=== PATIENT | male | born 1950 | race Caucasian/White ===

== ENCOUNTER 2017-12-11 01:35 | Emergency (ER) | payer OTHER ==
[~2017-12-11] VITALS: Ht 162.6 cm; Wt 72.6 kg
[~2017-12-11 01:35] MED LIST: CIPRO500 MG PO; FLAGYL500MG PO; ULTRACET PO; [UNRECOGNIZED DRUG - OTHER] PO
[2017-12-11] MEDS ORDERED: SYNTHROID50 MCG PO (01:48)
[2017-12-11] MEDS ORDERED: VALSARTAN80 MG PO (02:03)
[2017-12-11] MEDS ORDERED: NIFEDIPINE ER30 M1 PO (05:00)
== END 2017-12-11 05:08 | disposition home or self-care (01) ==
LOC: ER 01:35
DX: I10 Essential (primary) hypertension (principal)

== ENCOUNTER 2018-03-25 11:07 | Emergency (ER) | payer OTHER ==
[~2018-03-25] VITALS: Ht 162.6 cm; Wt 72.6 kg
[~2018-03-25 11:07] MED LIST changes: +NIFEDIPINE ER30 M1 PO; +SYNTHROID50 MCG PO; +VALSARTAN80 MG PO
[2018-03-25] MEDS ORDERED: NIFE60TA3 (11:51)
== END 2018-03-25 14:51 | disposition home or self-care (01) ==
LOC: ER 11:07
DX: M54.2 Cervicalgia (principal); M62.838 Other muscle spasm

== ENCOUNTER 2018-05-18 07:32 | Outpatient (CLI) | payer OTHER ==
[~2018-05-18 07:32] MED LIST changes: +NIFE60TA3
== END 2018-05-18 07:40 | disposition home or self-care (01) ==
LOC: LAB 07:32
DX: N40.1 Benign prostatic hyperplasia with lower urinary tract symptoms (principal); N39.0 Urinary tract infection, site not specified; D51.0 Vitamin B12 deficiency anemia due to intrinsic factor deficiency; E78.89 Other lipoprotein metabolism disorders; E11.9 Type 2 diabetes mellitus without complications; I10 Essential (primary) hypertension; I25.10 Atherosclerotic heart disease of native coronary artery without angina pectoris; I11.9 Hypertensive heart disease without heart failure; E78.2 Mixed hyperlipidemia; E03.8 Other specified hypothyroidism; M1A.00X0 Idiopathic chronic gout, unspecified site, without tophus (tophi)

== ENCOUNTER → 2018-06-24 | Day surgery (SDC) | payer OTHER | END | disposition home or self-care (01) | LOC: ADM 06-17 13:00 → AMB-ENDOS 06:10 | DX: K57.30 Diverticulosis of large intestine without perforation or abscess without bleeding (principal) ==

== ENCOUNTER 2018-06-30 08:18 | Outpatient (CLI) | payer OTHER | END 2018-06-30 08:31 | disposition home or self-care (01) | LOC: SONOGRAMA 08:18 | DX: K76.0 Fatty (change of) liver, not elsewhere classified (principal) ==

== ENCOUNTER 2018-08-04 06:57 | Outpatient (CLI) | payer OTHER | END 2018-08-04 07:03 | disposition home or self-care (01) | LOC: LAB 06:57 | DX: N39.0 Urinary tract infection, site not specified (principal); D68.8 Other specified coagulation defects ==

== ENCOUNTER 2018-08-31 08:15 | Outpatient (CLI) | payer OTHER | END 2018-08-31 08:19 | disposition home or self-care (01) | LOC: TOM 08:15 | DX: C61 Malignant neoplasm of prostate (principal) ==

== ENCOUNTER 2018-09-01 07:48 | Outpatient (CLI) | payer OTHER | END 2018-09-01 07:58 | disposition home or self-care (01) | LOC: NUCLEAR 07:48 | DX: C61 Malignant neoplasm of prostate (principal) | CPT/HCPCS: 78306; A9503 ==

== ENCOUNTER 2018-12-27 08:31 | Outpatient (CLI) | payer OTHER | END 2018-12-27 12:56 | disposition home or self-care (01) | LOC: LAB 08:31 | DX: N39.0 Urinary tract infection, site not specified (principal); C61 Malignant neoplasm of prostate; D50.8 Other iron deficiency anemias; E03.8 Other specified hypothyroidism; E78.2 Mixed hyperlipidemia; I11.9 Hypertensive heart disease without heart failure; E56.8 Deficiency of other vitamins; Z12.11 Encounter for screening for malignant neoplasm of colon; E55.9 Vitamin D deficiency, unspecified; N19 Unspecified kidney failure; E11.9 Type 2 diabetes mellitus without complications; R80.8 Other proteinuria; C18.0 Malignant neoplasm of cecum; K92.1 Melena; D50.9 Iron deficiency anemia, unspecified ==

== ENCOUNTER 2019-02-13 12:44 | Emergency (ER) | payer OTHER ==
[~2019-02-13] VITALS: Ht 162.6 cm; Wt 72.6 kg
== END 2019-02-13 16:20 | disposition home or self-care (01) ==
LOC: ER 12:44
DX: M25.562 Pain in left knee (principal)

== ENCOUNTER 2019-02-23 10:40 | Emergency (ER) | payer OTHER ==
[~2019-02-23] VITALS: Ht 162.6 cm; Wt 72.6 kg
== END 2019-02-23 15:45 | disposition home or self-care (01) ==
LOC: ER 10:40
DX: M54.2 Cervicalgia (principal); R51 Headache

== ENCOUNTER 2019-02-28 08:22 | Outpatient (CLI) | payer OTHER | END 2019-02-28 09:04 | disposition home or self-care (01) | LOC: LAB 08:22 | DX: N39.0 Urinary tract infection, site not specified (principal) ==

== ENCOUNTER 2019-03-11 08:49 | Outpatient (CLI) | payer OTHER | END 2019-03-11 08:53 | disposition home or self-care (01) | LOC: LAB 08:49 | DX: C61 Malignant neoplasm of prostate (principal) ==

== ENCOUNTER 2019-03-22 09:00 | Outpatient (CLI) | payer OTHER | END 2019-03-22 09:02 | disposition home or self-care (01) | LOC: RAD 09:00 | DX: M17.0 Bilateral primary osteoarthritis of knee (principal) ==

== ENCOUNTER 2019-04-13 09:08 | Emergency (ER) | payer OTHER ==
[~2019-04-13] VITALS: Ht 162.6 cm; Wt 73.5 kg
== END 2019-04-13 21:15 | disposition home or self-care (01) ==
LOC: ER
DX: I82.492 Acute embolism and thrombosis of other specified deep vein of left lower extremity (principal); I87.2 Venous insufficiency (chronic) (peripheral); M79.662 Pain in left lower leg

== ENCOUNTER 2019-04-14 09:20 | Outpatient (CLI) | payer OTHER | END 2019-04-14 14:29 | disposition home or self-care (01) | LOC: SONOGRAMA 09:20 | DX: N64.4 Mastodynia (principal) ==

== ENCOUNTER 2019-04-28 10:04 | Emergency (ER) | payer OTHER ==
[~2019-04-28] VITALS: Ht 162.6 cm; Wt 72.6 kg
[2019-04-28] MEDS ORDERED: XARELTO20 MG (10:16)
[2019-04-28] MEDS ORDERED: ULTRACET PO (12:55)
== END 2019-04-28 13:02 | disposition home or self-care (01) ==
LOC: ER 10:04
DX: I87.2 Venous insufficiency (chronic) (peripheral) (principal); M79.605 Pain in left leg

== ENCOUNTER 2019-05-03 20:33 | Emergency (ER) | payer OTHER ==
[~2019-05-03] VITALS: Ht 162.6 cm; Wt 72.6 kg
[~2019-05-03 20:33] MED LIST changes: +XARELTO20 MG
== END 2019-05-04 03:04 | disposition home or self-care (01) ==
LOC: ER 20:33 → CPU-OBS 20:34 → ER 20:34
DX: R07.89 Other chest pain (principal)

== ENCOUNTER 2019-07-13 09:51 | Outpatient (CLI) | payer OTHER | END 2019-07-13 10:00 | disposition home or self-care (01) | LOC: NUCLEAR 09:51 | DX: I80.222 Phlebitis and thrombophlebitis of left popliteal vein (principal) ==

== ENCOUNTER → 2019-07-15 08:56 | Outpatient (CLI) | payer OTHER | END | disposition home or self-care (01) | LOC: LAB 08:56 | DX: C61 Malignant neoplasm of prostate (principal); I10 Essential (primary) hypertension; E03.8 Other specified hypothyroidism; D50.8 Other iron deficiency anemias; D51.8 Other vitamin B12 deficiency anemias; R97.0 Elevated carcinoembryonic antigen [CEA]; R97.8 Other abnormal tumor markers ==

== ENCOUNTER 2019-10-21 08:57 | Outpatient (CLI) | payer OTHER | END 2019-10-21 09:22 | disposition home or self-care (01) | LOC: NUCLEAR 08:57 | DX: I80.222 Phlebitis and thrombophlebitis of left popliteal vein (principal); E03.8 Other specified hypothyroidism; I10 Essential (primary) hypertension; D51.1 Vitamin B12 deficiency anemia due to selective vitamin B12 malabsorption with proteinuria; D51.3 Other dietary vitamin B12 deficiency anemia; C61 Malignant neoplasm of prostate ==

== ENCOUNTER 2019-10-21 10:12 | Outpatient (CLI) | payer OTHER | END 2019-10-21 10:18 | disposition home or self-care (01) | LOC: LAB 10:12 | DX: D50.8 Other iron deficiency anemias (principal); I10 Essential (primary) hypertension; C61 Malignant neoplasm of prostate; E03.8 Other specified hypothyroidism; I80.222 Phlebitis and thrombophlebitis of left popliteal vein; D51.1 Vitamin B12 deficiency anemia due to selective vitamin B12 malabsorption with proteinuria; R97.0 Elevated carcinoembryonic antigen [CEA]; E06.3 Autoimmune thyroiditis; D51.0 Vitamin B12 deficiency anemia due to intrinsic factor deficiency ==

== ENCOUNTER 2020-01-30 09:47 | Outpatient (CLI) | payer OTHER | END 2020-01-30 10:53 | disposition home or self-care (01) | LOC: NUCLEAR 09:47 | PROVIDERS: ATTEND Internal Medicine Hematology & Oncology | DX: C61 Malignant neoplasm of prostate (principal); I80.222 Phlebitis and thrombophlebitis of left popliteal vein; D51.1 Vitamin B12 deficiency anemia due to selective vitamin B12 malabsorption with proteinuria; D51.3 Other dietary vitamin B12 deficiency anemia; E03.8 Other specified hypothyroidism; I10 Essential (primary) hypertension; M10.00 Idiopathic gout, unspecified site ==

== ENCOUNTER 2020-02-16 09:06 | Outpatient (CLI) | payer OTHER | END 2020-02-16 09:18 | disposition home or self-care (01) | LOC: LAB 09:06 | PROVIDERS: ATTEND Internal Medicine Hematology & Oncology | DX: C61 Malignant neoplasm of prostate (principal); I80.222 Phlebitis and thrombophlebitis of left popliteal vein; D51.1 Vitamin B12 deficiency anemia due to selective vitamin B12 malabsorption with proteinuria; D51.3 Other dietary vitamin B12 deficiency anemia; E03.8 Other specified hypothyroidism; I10 Essential (primary) hypertension; M10.00 Idiopathic gout, unspecified site; R97.0 Elevated carcinoembryonic antigen [CEA]; R97.20 Elevated prostate specific antigen [PSA] ==

== ENCOUNTER 2020-09-25 08:31 | Outpatient (CLI) | payer OTHER | END 2020-09-25 08:36 | disposition home or self-care (01) | LOC: NUCLEAR 08:31 | PROVIDERS: ATTEND Internal Medicine | DX: C61 Malignant neoplasm of prostate (principal) | CPT/HCPCS: 78815; A9552 ==

== ENCOUNTER 2021-01-24 09:50 | Day surgery (SDC) | payer OTHER | END 2021-01-24 13:30 | disposition home or self-care (01) | LOC: AMB-ENDOS 09:50 → EDBD 09:50 → AMB-ENDOS 13:30 | PROVIDERS: ATTEND Surgery | DX: K62.89 Other specified diseases of anus and rectum (principal); K62.7 Radiation proctitis; Z20.822 Contact with and (suspected) exposure to COVID-19; K64.4 Residual hemorrhoidal skin tags ==

== ENCOUNTER 2021-06-03 04:44 | Inpatient (IN) | payer OTHER ==
[~2021-06-03] VITALS: Ht 162.6 cm
[2021-06-03] MEDS ORDERED: NORVASC5 MG (05:09)
--- NOTE | 2021-06-03 05:13 | NUR ---
SE RECIBE PTE ALERTA Y ORIENTADO POR CHELA. PTE REFIERE PRESENTAR DOLOR EN TODO EL ABDOMEN Y UN EPISODIO DE VOMITO. PTE INDICA QUE LOS SINTOMAS COMENZARON GUADALUPE A LAS 7:00PM APROXIMADAMENTE.
--- NOTE | 2021-06-03 06:02 | NUR ---
PACIENTE ALERTA Y ORIENTADO X3. MIS. PEDROZA ORIENTA A PACIENTE SOBRE TX Y PROCEDIMIENTO A REALIZAR Y REFIRIO ENTENDER. REALIZA MUESTRAS DE LABORATORIO BAJO MEDIDAS ASEPTICAS Y CANALIZACION PATENTE Y SHELLY DE EDEMA Y ERITEMA. ADMINISTRA MEDICAMENTOS ORDENADOS POR MD. PENDIENTE CT ABDOMEN Y PELVICO CON CONTRASTE PO. SE ORIENTO A PACIENTE SOBRE JOSÉ MIGUEL TOMARSE EL CONTRASTE PO Y REFIRIO ENTENDER. SE MANTIENE BAJO OBSERVACION POR CAMBIOS SIGNIFICATIVOS EN THUAN CON BARANDAS ELEVADAS.
[2021-06-08] MEDS ORDERED: COLCHICINE0.6 MG PO (11:31)
[2021-06-08] MEDS ORDERED: NAPR500T14 PO (11:32)
[2021-06-08] MEDS ORDERED: PROTONIX40 MG PO (11:33)
== END 2021-06-08 13:19 | disposition home or self-care (01) | DRG 337 ==
LOC: ER 04:44 → SURG 15:46 → SURH 06-08 07:45
PROVIDERS: ADMIT Surgery; ATTEND Surgery
PROC: BW2110Z Computerized Tomography (CT Scan) of Abdomen and Pelvis using Low Osmolar Contrast, Unenhanced and Enhanced (ICD-10-PCS; 2021-06-03)
PROC: 0DN84ZZ Release Small Intestine, Percutaneous Endoscopic Approach (ICD-10-PCS; 2021-06-04)
PROC: 3E0F7SF Introduction of Other Gas into Respiratory Tract, Via Natural or Artificial Opening (ICD-10-PCS; 2021-06-04)
PROC: 0DTJ4ZZ Resection of Appendix, Percutaneous Endoscopic Approach (ICD-10-PCS; principal; 2021-06-04 07:00)
PROC: B54CZZZ Ultrasonography of Left Lower Extremity Veins (ICD-10-PCS; 2021-06-06)
DX: K35.890 Other acute appendicitis without perforation or gangrene (principal); K66.0 Peritoneal adhesions (postprocedural) (postinfection); M10.9 Gout, unspecified; N36.8 Other specified disorders of urethra; I10 Essential (primary) hypertension; E03.8 Other specified hypothyroidism; I73.89 Other specified peripheral vascular diseases; Z20.822 Contact with and (suspected) exposure to COVID-19; Z86.718 Personal history of other venous thrombosis and embolism

== ENCOUNTER 2022-02-06 11:17 | Inpatient (IN) | payer OTHER ==
[~2022-02-06] VITALS: Ht 152.4 cm; Wt 75.3 kg
[~2022-02-06 11:17] MED LIST changes: +COLCHICINE0.6 MG PO; +NAPR500T14 PO; +NORVASC5 MG; +PROTONIX40 MG PO
== END 2022-02-08 15:44 | disposition home or self-care (01) | DRG 390 ==
LOC: ER 11:17 → SURH 22:47
PROVIDERS: ADMIT Surgery; ATTEND Surgery
PROC: BW21YZZ Computerized Tomography (CT Scan) of Abdomen and Pelvis using Other Contrast (ICD-10-PCS; principal; 2022-02-06)
DX: K56.690 Other partial intestinal obstruction (principal); K59.09 Other constipation; R10.9 Unspecified abdominal pain; Z85.46 Personal history of malignant neoplasm of prostate; Z20.822 Contact with and (suspected) exposure to COVID-19

== ENCOUNTER 2022-02-23 10:28 | Emergency (ER) | payer OTHER ==
[~2022-02-23] VITALS: Ht 152.4 cm; Wt 74.4 kg
[2022-02-23] MEDS ORDERED: COMPLETE OMEGA1 EACH PO (10:38)
== END 2022-02-23 12:39 | disposition home or self-care (01) ==
LOC: ER 10:28
DX: R31.9 Hematuria, unspecified (principal); I10 Essential (primary) hypertension

== ENCOUNTER 2022-03-18 10:41 | Outpatient (CLI) | payer OTHER ==
[~2022-03-18 10:41] MED LIST changes: +COMPLETE OMEGA1 EACH PO
== END 2022-03-18 10:44 | disposition home or self-care (01) ==
LOC: NUCLEAR 10:41
PROVIDERS: ATTEND Internal Medicine Geriatric Medicine
DX: I87.2 Venous insufficiency (chronic) (peripheral) (principal); I82.509 Chronic embolism and thrombosis of unspecified deep veins of unspecified lower extremity

== ENCOUNTER 2022-07-04 11:30 | Outpatient (CLI) | payer OTHER | END 2022-07-04 11:31 | disposition home or self-care (01) | LOC: LAB 11:30 | PROVIDERS: ATTEND Radiology Diagnostic Radiology | DX: D12.1 Benign neoplasm of appendix (principal) ==

== ENCOUNTER 2022-11-05 11:43 | Outpatient (CLI) | payer OTHER | END 2022-11-05 11:50 | disposition home or self-care (01) | LOC: RAD 11:43 | PROVIDERS: ATTEND Orthopaedic Surgery | DX: M54.59 Other low back pain (principal) ==

== ENCOUNTER 2023-01-21 08:16 | Outpatient (CLI) | payer OTHER | END 2023-01-21 08:29 | disposition home or self-care (01) | LOC: TOM 08:16 | PROVIDERS: ATTEND Surgery | DX: K57.30 Diverticulosis of large intestine without perforation or abscess without bleeding (principal); K62.7 Radiation proctitis | CPT/HCPCS: 74178; Q9965 ==

== ENCOUNTER 2023-03-08 14:24 | Emergency (ER) | payer OTHER ==
[~2023-03-08] VITALS: Ht 162.6 cm; Wt 73.9 kg
== END 2023-03-08 18:43 | disposition home or self-care (01) ==
LOC: ER 14:24
DX: R10.32 Left lower quadrant pain (principal); I10 Essential (primary) hypertension; M10.9 Gout, unspecified; Z85.89 Personal history of malignant neoplasm of other organs and systems

== ENCOUNTER 2023-11-03 08:19 | Outpatient (CLI) | payer OTHER | END 2023-11-03 08:20 | disposition home or self-care (01) | LOC: NUCLEAR 08:19 | PROVIDERS: ATTEND Internal Medicine Geriatric Medicine | DX: Z86.718 Personal history of other venous thrombosis and embolism (principal) ==

== ENCOUNTER 2023-11-03 09:31 | Outpatient (CLI) | payer OTHER | END 2023-11-03 09:34 | disposition home or self-care (01) | LOC: RAD 09:31 | PROVIDERS: ATTEND Orthopaedic Surgery | DX: M79.671 Pain in right foot (principal); M79.672 Pain in left foot; M25.571 Pain in right ankle and joints of right foot; M25.572 Pain in left ankle and joints of left foot ==

== ENCOUNTER 2023-12-03 06:57 | Emergency (ER) | payer OTHER ==
[~2023-12-03] VITALS: Ht 162.6 cm; Wt 72.6 kg
[2023-12-03] MEDS ORDERED: DEXAMETHASONE SODIUM PHOSPHATE 4 MG/ML VIAL IM STA (08:21)
[2023-12-03] MEDS ORDERED: KETOROLAC TROMETHAMINE 30 MG VIAL IM ONE (08:30)
[2023-12-03 09:42] LABS: HEMATOCRIT 48.9 % (39.0-48.0); MEAN CELL VOLUME 91.5 fL (80.0-100.00); MEAN CORPUSCULAR HEMOGLOBIN 31.8 pg (27.00-32.0); MEAN CORPUSCULAR HGB CONC 34.8 g/dl (32.0-36.0); PLATELET COUNT 174 K/uL (150-450); RED BLOOD COUNT 5.34 M/uL (4.00-6.00); RED CELL DISTRIBUTION WIDTH 14.1 % (11.5-14.5)
[2023-12-03 10:54] LABS: ALBUMIN 3.9 gm/dL (3.4-5.0); BILIRUBIN TOTAL 0.98 mg/dL (0.3-1.2); CALCIUM 9.5 mg/dL (8.5-10.1); CREATININE SERUM 1.06 mg/dL (0.70-1.30); GFR 68.67; GLOBULINA 3.8 G/DL (2.4-3.5); POTASSIUM 4.88 mEq/L (3.5-5.1); TOTAL PROTEIN 7.7 gm/dL (6.4-8.2); URIC ACID 7.8 mg/dL (3.5-8.5)
== END 2023-12-03 11:42 | disposition home or self-care (01) ==
LOC: ER 06:57
PROVIDERS: General Practice
DX: M25.561 Pain in right knee (principal); M25.469 Effusion, unspecified knee; I10 Essential (primary) hypertension; E03.8 Other specified hypothyroidism
CPT/HCPCS: 36415; 73560; 96372; 99283; J1100; J1885

== ENCOUNTER 2023-12-14 08:14 | Outpatient (CLI) | payer OTHER | END 2023-12-14 08:15 | disposition home or self-care (01) | LOC: NUCLEAR 08:14 | PROVIDERS: ATTEND Orthopaedic Surgery | DX: C61 Malignant neoplasm of prostate (principal) | CPT/HCPCS: 78306; A9503 ==

== ENCOUNTER 2023-12-16 08:53 | Outpatient (CLI) | payer OTHER | END 2023-12-16 08:54 | disposition home or self-care (01) | LOC: NUCLEAR 08:53 | PROVIDERS: ATTEND Orthopaedic Surgery | DX: C61 Malignant neoplasm of prostate (principal) | CPT/HCPCS: 78815; A9552 ==

== ENCOUNTER 2024-04-04 09:18 | Emergency (ER) | payer OTHER ==
[~2024-04-04] VITALS: Ht 162.6 cm; Wt 72.6 kg
[2024-04-04 11:02] LABS: HEMATOCRIT 41.3 % (39.0-48.0); HEMOGLOBIN 14.7 g/dL (13-16.00); MEAN CELL VOLUME 89.9 fL (80.0-100.00); MEAN CORPUSCULAR HEMOGLOBIN 32.1 pg (27.00-32.0); MEAN CORPUSCULAR HGB CONC 35.7 g/dl (32.0-36.0); PLATELET COUNT 163 K/uL (150-450); RED BLOOD COUNT 4.59 M/uL (4.00-6.00); RED CELL DISTRIBUTION WIDTH 13.9 % (11.5-14.5)
[2024-04-04 11:12] LABS: CALCIUM 9.5 mg/dL (8.5-10.1); CREATININE SERUM 1.06 mg/dL (0.70-1.30); GFR 68.67; POTASSIUM 4.35 mEq/L (3.5-5.1)
[2024-04-04 11:41] LABS: URINE APPEARANCE Clear; URINE BILIRRUBIN Negative (NEGATIVE); URINE BLOOD Negative; URINE COLOR Yellow; URINE GLUCOSE Negative (NEGATIVE); URINE LEUKOCYTE Negative; URINE NITRATE Negative; URINE PROTEIN Negative (NEGATIVE); URINE UROBILINOGEN 0.2 E.U./dl
[2024-04-04 11:45] LABS: URINE BACTERIA 6.2 uL (0.0-1933); URINE RBC 10.6 uL (0.0-20.8); URINE WBC 3.8 uL (0.0-23.2)
[2024-04-04 11:58] LABS: URINE EPITHELIAL CELLS 1.2 uL (0.0-38.8)
[2024-04-04] MEDS ORDERED: CELEBREX200MG PO (12:26)
[2024-04-04] MEDS ORDERED: CELECOXIB 200 MG CAPSULE PO SCH (21:00)
== END 2024-04-04 12:41 | disposition home or self-care (01) ==
LOC: ER 09:19
DX: R42 Dizziness and giddiness (principal); M19.90 Unspecified osteoarthritis, unspecified site; Z20.822 Contact with and (suspected) exposure to COVID-19; M50.323 Other cervical disc degeneration at C6-C7 level

== ENCOUNTER 2024-08-25 13:34 | Emergency (ER) | payer OTHER ==
[~2024-08-25] VITALS: Ht 165.1 cm; Wt 90.7 kg
[~2024-08-25 13:34] MED LIST changes: +CELEBREX200MG PO
[2024-08-25] MEDS ORDERED: BENZONATATE200 M1 PO (14:01)
[2024-08-25] MEDS ORDERED: PEPCID AC20 MG PO (14:01)
[2024-08-25] MEDS ORDERED: ZITHROMAX500 MG PO (14:01)
[2024-08-25] MEDS ORDERED: MONTELUKAST SODI4 M1 PO (14:01)
[2024-08-25] MEDS ORDERED: LEVALBUTER0.63 MG/3 IH (14:01)
== END 2024-08-25 14:02 | disposition home or self-care (01) ==
LOC: ER 13:36
DX: R53.81 Other malaise (principal); R05.9 Cough, unspecified; I10 Essential (primary) hypertension

== ENCOUNTER 2024-12-11 19:54 | Emergency (ER) | payer OTHER ==
[~2024-12-11] VITALS: Ht 162.6 cm; Wt 74.8 kg
[~2024-12-11 19:54] MED LIST changes: +BENZONATATE200 M1 PO; +LEVALBUTER0.63 MG/3 IH; +MONTELUKAST SODI4 M1 PO; +PEPCID AC20 MG PO; +ZITHROMAX500 MG PO
[2024-12-11] MEDS ORDERED: LEVOTHYROXINE25 MC1 PO (20:12)
[2024-12-11] MEDS ORDERED: NORVASC2.5 MG PO (20:12)
[2024-12-11] MEDS ORDERED: 0.9 % SODIUM CHLORIDE 1,000 ML IV SCH (20:45)
[2024-12-11 21:06] LABS: HEMATOCRIT 37.8 % (39.0-48.0); HEMOGLOBIN 13.3 g/dL (13-16.00); MEAN CELL VOLUME 89.5 fL (80.0-100.00); MEAN CORPUSCULAR HEMOGLOBIN 31.6 pg (27.00-32.0); MEAN CORPUSCULAR HGB CONC 35.3 g/dl (32.0-36.0); PLATELET COUNT 190 K/uL (150-450); RED BLOOD COUNT 4.23 M/uL (4.00-6.00); RED CELL DISTRIBUTION WIDTH 13.7 % (11.5-14.5)
[2024-12-11 21:25] LABS: CALCIUM 9.7 mg/dL (8.5-10.1); CREATININE SERUM 1.19 mg/dL (0.70-1.30); GFR 59.92; POTASSIUM 4.58 mEq/L (3.5-5.1)
[2024-12-11 23:57] LABS: URINE APPEARANCE Clear; URINE BILIRRUBIN Negative (NEGATIVE); URINE BLOOD Negative; URINE COLOR Yellow; URINE GLUCOSE Negative (NEGATIVE); URINE KETONE Negative (NEGATIVE); URINE LEUKOCYTE Negative; URINE NITRATE Negative; URINE PROTEIN Negative (NEGATIVE); URINE UROBILINOGEN 0.2 E.U./dl
[2024-12-11 23:58] LABS: URINE BACTERIA 15.9 uL (0.0-1933); URINE RBC 2.7 uL (0.0-20.8); URINE WBC 7.5 uL (0.0-23.2)
[2024-12-12 00:11] LABS: URINE CAST 0.14 uL (0.0-1.40); URINE EPITHELIAL CELLS 1.1 uL (0.0-38.8)
[2024-12-12] MEDS ORDERED: CIPROFLOXACIN IN 5 % DEXTROSE 400 MG/200 ML PIGGYBAG IV STA (02:30)
[2024-12-12] MEDS ORDERED: HYOSCYAMINE SULFATE 0.125 MG TAB.SUBL SL ONE (02:30)
[2024-12-12] MEDS ORDERED: LACTOBACILLUS ACIDOPHILUS 1 CAP CAP PO STA (02:30)
[2024-12-12] MEDS ORDERED: INTESTINEX680 M1 PO (04:11)
[2024-12-12] MEDS ORDERED: LEVSIN/SL0.125 MG SL (04:11)
== END 2024-12-12 04:29 ==
LOC: ER 19:55
PROVIDERS: Emergency Medicine
DX: K52.9 Noninfective gastroenteritis and colitis, unspecified (principal); R10.9 Unspecified abdominal pain; I10 Essential (primary) hypertension; E03.8 Other specified hypothyroidism
CPT/HCPCS: 36415; 74177; Q9965

== ENCOUNTER 2025-04-15 16:36 | Emergency (ER) | payer OTHER ==
[~2025-04-15] VITALS: Ht 162.6 cm; Wt 74.4 kg
[~2025-04-15 16:36] MED LIST changes: +INTESTINEX680 M1 PO; +LEVOTHYROXINE25 MC1 PO; +LEVSIN/SL0.125 MG SL; +NORVASC2.5 MG PO
[2025-04-15] MEDS ORDERED: KETOROLAC TROMETHAMINE 15 MG VIAL IV STA (18:47)
[2025-04-15] MEDS ORDERED: ORPHENADRINE CITRATE 30 MG/ML AMPUL IM STA (18:47)
[2025-04-15] MEDS ORDERED: METHYLPREDNISOLONE SOD SUCC 40 MG VIAL IV STA (18:48)
[2025-04-15] MEDS ORDERED: MEDROLPACK PO (20:49)
[2025-04-15] MEDS ORDERED: CELEBREX200MG PO (20:49)
[2025-04-15] MEDS ORDERED: METAXALONE800 MG PO (20:49)
== END 2025-04-15 22:19 | disposition home or self-care (01) ==
LOC: ER 16:36
DX: M54.9 Dorsalgia, unspecified (principal); M51.379 Other intervertebral disc degeneration, lumbosacral region without mention of lumbar back pain or lower extremity pain

== ENCOUNTER 2025-04-20 15:30 | Outpatient (CLI) | payer OTHER ==
[~2025-04-20 15:30] MED LIST changes: +MEDROLPACK PO; +METAXALONE800 MG PO
== END 2025-04-20 15:34 | disposition home or self-care (01) ==
LOC: RAD 15:30
DX: M54.50 Low back pain, unspecified (principal)

== ENCOUNTER 2025-08-15 13:38 | Emergency (ER) | payer OTHER ==
[~2025-08-15] VITALS: Ht 162.6 cm; Wt 73.9 kg
[2025-08-15 14:05] VITALS: BP 135/82; O2SAT 98
[2025-08-15] MEDS ORDERED: SYNTHROID50 MCG PO (14:07)
[2025-08-15] MEDS ORDERED: KETOROLAC TROMETHAMINE 30 MG VIAL ONE (15:57)
[2025-08-15] MEDS ORDERED: ONDANSETRON HCL 2 MG/ML VIAL ONE (15:57)
[2025-08-15] MEDS ORDERED: HYOSCYAMINE SULFATE 0.125 MG TAB.SUBL ONE (15:58)
[2025-08-15] MEDS ORDERED: ACETAMINOPHEN 500 MG GEL..CAP PO ONE ×2 (15:58→16:00)
[2025-08-15] MEDS ORDERED: FAMOTIDINE/PF 20 MG/2 ML VIAL ONE (15:58)
[2025-08-15] MEDS ORDERED: ONDANSETRON HCL 4 MG in 0.9 % SODIUM CHLORIDE 50 ML IV ONE (16:00)
[2025-08-15] MEDS ORDERED: KETOROLAC TROMETHAMINE 30 MG VIAL IU ONE (16:00)
[2025-08-15] MEDS ORDERED: HYOSCYAMINE SULFATE 0.125 MG TAB.SUBL PO ONE (16:00)
[2025-08-15] MEDS ORDERED: FAMOTIDINE/PF 20 MG in 0.9 % SODIUM CHLORIDE 8 ML IV PUSH ONE (16:00)
[2025-08-15] MEDS ORDERED: 0.9 % SODIUM CHLORIDE 1,000 ML IV SCH (16:00)
[2025-08-15 16:41] LABS: BASO % 0.4 % (0.1-1.2); EOS # 0.03 (0.04-0.54); EOS % 0.4 % (0.7-7.0); LYMPH # 1.88 (1.18-3.74); LYMPH % 23.9 % (19.3-53.1); MEAN PLATELET VOLUME 9.50 fl (9.4-12.4); MONO # 0.50 (0.24-0.82); MONO % 6.4 % (4.7-12.5); NEUT # 5.40 (1.56-6.13); NEUT % 68.6 % (34.0-71.1); RED CELL DISTRIBUTION WIDTH 13.0 % (11.6-14.4)
[2025-08-15 17:06] LABS: ERYTHROCYTE SEDIMENTATION RATE 14 mm/hr (0-20)
[2025-08-15 17:08] LABS: INR 1.03
[2025-08-15 17:15] LABS: ALT/SGPT 52.0 U/L (12-78); AST/SGOT 34.0 U/L (15-37); BILIRUBIN TOTAL 0.57 mg/dL (0.3-1.2); BUN CREA RATIO 21.0 (7.0-25.0); CREATININE SERUM 1.11 mg/dL (0.70-1.30); GFR 64.93; GLOBULINA 4.5 G/DL (2.4-3.5); GLUCOSE FASTING 109.0 mg/dL (65-100); OSMOLALITY SERUM 282.0 MOSM/KG (275-295)
[2025-08-15 17:37] LABS: URINE APPEARANCE Clear; URINE BILIRRUBIN Negative (NEGATIVE); URINE BLOOD Negative; URINE COLOR Yellow; URINE GLUCOSE Negative (NEGATIVE); URINE KETONE Negative (NEGATIVE); URINE LEUKOCYTE Negative; URINE NITRATE Negative; URINE PROTEIN Negative (NEGATIVE); URINE UROBILINOGEN 0.2 E.U./dl
[2025-08-15 17:41] LABS: URINE BACTERIA 16.7 uL (0.0-1933); URINE EPITHELIAL CELLS 1.5 uL (0.0-38.8); URINE RBC 6.5 uL (0.0-20.8); URINE WBC 2.3 uL (0.0-23.2)
[2025-08-15 18:05] LABS: URINE CAST 0.00 uL (0.0-1.40)
[2025-08-15] MEDS ORDERED: INTESTINEX680 M2 PO (20:12)
[2025-08-15] MEDS ORDERED: CIPRO500 MG PO (20:12)
[2025-08-15] MEDS ORDERED: DICY20TA PO (20:12)
[2025-08-15] MEDS ORDERED: METRONIDAZOLE500 MG PO (20:12)
== END 2025-08-15 20:27 | disposition home or self-care (01) ==
LOC: ER 13:39
PROVIDERS: General Practice
DX: Z93.3 Colostomy status (principal); K52.9 Noninfective gastroenteritis and colitis, unspecified; R10.31 Right lower quadrant pain; R10.9 Unspecified abdominal pain; E03.8 Other specified hypothyroidism
CPT/HCPCS: 36415; 74176; 96365; 96366; 99284; J1885; J2405; J3490; J7030

== ENCOUNTER 2025-09-13 07:37 | Emergency (ER) | payer OTHER ==
[~2025-09-13] VITALS: Ht 165.1 cm; Wt 72.6 kg
[~2025-09-13 07:37] MED LIST changes: +DICY20TA PO; +INTESTINEX680 M2 PO; +METHOCARBAMOL500 MG PO; +METRONIDAZOLE500 MG PO
[2025-09-13] MEDS ORDERED: DIATRIZOATE MEGLUMINE, SODIUM 30 ML BOTTLE PO STA (08:40)
[2025-09-13] MEDS ORDERED: FAMOTIDINE/PF 20 MG/2 ML VIAL IV PUSH STA (08:40)
[2025-09-13] MEDS ORDERED: ONDANSETRON HCL 2 MG/ML VIAL IV STA (08:41)
[2025-09-13 09:42] LABS: BASO % 0.4 % (0.1-1.2); EOS # 0.01 (0.04-0.54); EOS % 0.1 % (0.7-7.0); LYMPH # 0.81 (1.18-3.74); LYMPH % 10.0 % (19.3-53.1); MEAN PLATELET VOLUME 10.80 fl (9.4-12.4); MONO # 0.32 (0.24-0.82); MONO % 3.9 % (4.7-12.5); NEUT # 6.92 (1.56-6.13); NEUT % 85.4 % (34.0-71.1); RED CELL DISTRIBUTION WIDTH 13.2 % (11.6-14.4)
[2025-09-13 10:06] LABS: ALT/SGPT 50.0 U/L (12-78); AST/SGOT 33.0 U/L (15-37); BILIRUBIN TOTAL 0.42 mg/dL (0.3-1.2); BUN CREA RATIO 18.0 (7.0-25.0); CREATININE SERUM 1.05 mg/dL (0.70-1.30); GFR 69.23; GLOBULINA 4.4 G/DL (2.4-3.5); GLUCOSE FASTING 135.0 mg/dL (65-100); OSMOLALITY SERUM 284.0 MOSM/KG (275-295)
[2025-09-13 11:27] LABS: INR 1.04
[2025-09-13 16:16] VITALS: BP 120/60; O2SAT 100
== END 2025-09-13 16:19 | disposition left against medical advice (07) ==
LOC: ER 07:37
PROVIDERS: General Practice
DX: R10.84 Generalized abdominal pain (principal); K56.690 Other partial intestinal obstruction
CPT/HCPCS: 36415; 74176; 96365; 99283; J2405; J3490